=== PATIENT | male | born 1990 | race Two or more races ===

== ENCOUNTER 2022-11-10 10:18 | Emergency (ER) | payer OTHER ==
[2022-11-10] MEDS ORDERED: Lidocaine 1% 30 ML SDV INJECT ONE (10:30)
[2022-11-10] MEDS ORDERED: Diphtheria,Pertussis(Acell),Tetanus Vaccine 0.5 ML Syringe IM ONE (10:33)
== END 2022-11-10 10:50 | disposition home or self-care (01) ==
LOC: VM.ED 10:18
DX: S61.412A Laceration without foreign body of left hand, initial encounter (principal); Z23 Encounter for immunization; W27.8XXA Contact with other nonpowered hand tool, initial encounter
CPT/HCPCS: 12002; 90471; 90715; 99282-25; 99283